=== PATIENT | male | born 1945 ===

== ENCOUNTER 2022-03-13 13:01 | Day surgery (SDC) | payer MEDICARE ==
[~2022-03-13] VITALS: Ht 170.2 cm; Wt 97.2 kg
[2022-03-13] VITALS (11 sets, daily range): BP systolic 113–147; BP diastolic 57–81; PULSE 57–63; TEMP 97.1–97.9
[2022-03-13] MEDS ORDERED: COZAAR100 MG PO (13:33)
[2022-03-13] MEDS ORDERED: NORVASC 10MG10 MG PO (13:33)
[2022-03-13] MEDS ORDERED: COREG 6.256.25 MG/TA PO (13:34)
--- NOTE | 2022-03-13 15:00 | NUR ---
PT TO BAY 3 PER CART FROM PROCEDURE ROOM. REPORT RECEIVED. VS OBTAINED. CALL LIGHT WITHIN REACH. PT DENIES ANY NEEDS AT THIS TIME. PT DENIES ANY DISCOMFORT AT THIS TIME.
--- NOTE | 2022-03-13 16:15 | NUR ---
PT TOLERATING SODA AND JELLO. CONTINUES TO DENY ANY DISCOMFORT. PT UP TO RESTROOM AND VOIDED WITHOUT DIFFICULTY.
--- NOTE | 2022-03-13 17:00 | NUR ---
PT CONTINUES TO DENY ANY DISCOMFORT. TOLERATING JUICE. WILL CONTINUE TO MONITOR.
--- NOTE | 2022-03-13 17:35 | NUR ---
1720-IV DC'D AT THIS TIME. 1725-DISCHARGE EDUCATION COMPLETED WITH PT. VERBALIZED UNDERSTANDING OF HOME AND FOLLOW UP CARE. ALL QUESTIONS ANSWERED. DISCHARGE PAPERWORK GIVEN TO PT. 1735-PT OFF UNIT PER WHEELCHAIR. PT DISCHARGED TO HOME WITH [id number] PER PERSONAL VEHICLE.
== END 2022-03-13 17:35 | disposition home or self-care (01) ==
LOC: SDCO 13:01
DX: K80.70 Calculus of gallbladder and bile duct without cholecystitis without obstruction (principal); I10 Essential (primary) hypertension
CPT/HCPCS: C1769; J2704; J3010; J7120; Q9967